=== PATIENT | female | born 2000 | race African-American/Black ===

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

== ENCOUNTER 2021-08-31 17:51 | Observation (INO) | payer MEDICAID ==
[~2021-08-31] VITALS: Ht 157.5 cm; Wt 98.0 kg
[2021-08-31 18:00] VITALS: BP 101/71
[2021-08-31] MEDS ORDERED: LACTATED RINGER'S 1,000 ML IV ONE (19:45)
[2021-08-31] MEDS ORDERED: LACTATED RINGER'S 1,000 ML IV SCH (19:45)
[2021-08-31 20:23] LABS: Alcohol, Urine < 3.0 mg/dL (0-10); Amphetamine Screen, Urine NEGATIVE (NEGATIVE); Barbiturate Scree,Urine NEGATIVE (NEGATIVE); Benzodiazephine Screen, Urine NEGATIVE (NEGATIVE); Cannabinoid Screen, Urine NEGATIVE (NEGATIVE); Cocaine Screen, Urine NEGATIVE (NEGATIVE); Opiate Scree,Urine NEGATIVE (NEGATIVE); Phencyclidine Screen, Urine NEGATIVE (NEGATIVE); Urine Bacteria FEW /hpf (None Seen); Urine Blood Negative /uL (Negative); Urine Specific Gravity 1.008 (1.001-1.035); Urine WBC 5 /hpf (0 - 5)
[2021-08-31 20:37] LABS: Basophils # (auto) 0.1 10 ^3/uL (0-0.2); Eosinophils # (auto) 0.1 10 ^3/uL (0-0.8); Hemoglobin 10.1 g/dL (12.2-16.2); Lymphocytes # (auto) 1.9 10 ^3/uL (0.4-5.4); Lymphocytes % (auto) 17.3 % (10.0-50.0); Mean Corpuscular Hemoglobin 23.6 pg (28.0-32.0); Monocytes # (auto) 0.9 10 ^3/uL (0-1.3); Nucleated Red Blood Cells % 0.1 %
[2021-08-31 20:39] LABS: Basophils % (auto) 1.3 % (0.0-2.0); Hematocrit 31.5 % (36.0-46.0); Mean Corpuscular Hgb Conc. 32.2 g/dL (32.0-36.0); Mean Corpuscular Volume 73.4 fL (80.0-100.0); Monocytes % (auto) 8.1 % (0.0-12.0); Neutrophils % (auto) 72.3 % (37.0-80.0); Red Cell Distribution Width 17.1 % (11.8-14.3)
[2021-08-31 20:55] LABS: Albumin 2.6 g/dL (3.4-5.0); BUN/Creatinine Ratio 9.1; Calcium 8.5 mg/dL (8.5-10.1); Potassium 3.6 mmol/L (3.5-5.1)
[2021-08-31 20:57] LABS: Bilirubin, Total 0.2 mg/dL (0.2-1.0)
[2021-08-31 20:58] LABS: Total Protein 6.9 g/dL (6.4-8.2)
[2021-08-31] MEDS ORDERED: PREN-96 OR (22:27)
[2021-09-02 06:06] LABS: RPR Non Reactive (Non Reactive)
[2021-09-02 08:06] LABS: Rubella Antibodies, IgG 1.32 index (Immune >0.99)
== END 2021-08-31 23:16 | disposition home or self-care (01) ==
LOC: ER 17:51 → LDRP 18:20
PROVIDERS: ADMIT Obstetrics & Gynecology; ATTEND Obstetrics & Gynecology
DX: O26.893 Other specified pregnancy related conditions, third trimester (principal); N89.8 Other specified noninflammatory disorders of vagina; R10.9 Unspecified abdominal pain; R11.0 Nausea; G43.909 Migraine, unspecified, not intractable, without status migrainosus; O23.93 Unspecified genitourinary tract infection in pregnancy, third trimester; R30.0 Dysuria; O09.33 Supervision of pregnancy with insufficient antenatal care, third trimester; D84.9 Immunodeficiency, unspecified; O99.113 Other diseases of the blood and blood-forming organs and certain disorders involving the immune mechanism complicating pregnancy, third trimester; Z3A.31 31 weeks gestation of pregnancy; Z79.899 Other long term (current) drug therapy; Z98.890 Other specified postprocedural states
CPT/HCPCS: 36415; 59025; 76805; 76817; 80053; 80307; 81001; 82962; 85025; 86592; 86703; 86762; 86850; 86900; 86901; 87210; 87340; 87491; 87591; 94760; 96360; 96361; 99285; G0378

== ENCOUNTER 2024-04-07 16:58 | Emergency (ER) | payer MEDICAID ==
[~2024-04-07] VITALS: Ht 157.5 cm; Wt 97.5 kg
[~2024-04-07 16:58] MED LIST: PREN-96 OR
[2024-04-07 20:25] VITALS: BP 134/76; PULSE 83; RESP 18; TEMP 97.5; O2SAT 98
[2024-04-07] MEDS ORDERED: IBU600T PO (20:26)
== END 2024-04-07 20:30 | disposition home or self-care (01) ==
LOC: ER 16:58
DX: S16.1XXA Strain of muscle, fascia and tendon at neck level, initial encounter (principal); Z79.899 Other long term (current) drug therapy; Y04.8XXA Assault by other bodily force, initial encounter; Y93.89 Activity, other specified; Y92.89 Other specified places as the place of occurrence of the external cause; Y99.8 Other external cause status
CPT/HCPCS: 72040; 81025